=== PATIENT | male | born 1955 | race Caucasian/White ===

== ENCOUNTER 2016-10-06 23:43 | Emergency (ER) | payer MEDICAID ==
[~2016-10-06] VITALS: Ht 188 cm; Wt 81.8 kg
[2016-10-07] MEDS ORDERED: LORAZEPAM 1MG TABLET PO ONE (03:15)
[2016-10-07 03:36] LABS: BASOPHILS % 0.3 % (0.0-2.0); EOSINOPHILS % 1.1 % (0.0-5.0); HEMATOCRIT. 40.8 % (42.0-52.0); HEMOGLOBIN. 14.1 g/dL (14.0-18.0); LYMPHOCYTES % 23.6 % (20.0-50.0); MEAN CORPUSCULAR HEMOGLOBIN 30.9 pg (28.0-32.0); MEAN CORPUSCULAR VOLUME 89.5 fL (80.0-94.0); MEAN PLATELET VOLUME 8.4 fl (7.4-10.4); PLATELET 177 x1000/uL (130-400); RED BLOOD CELL COUNT 4.55 mill/uL (4.7-6.1); RED CELL DISTRIBUTION WIDTH 13.6 % (11.6-14.6)
[2016-10-07 03:47] LABS: CARBON DIOXIDE 31 mEq/L (21-32); CHLORIDE 96 mEq/L (98-107)
[2016-10-07 04:50] VITALS: BP 130/75
== END 2016-10-07 05:24 | disposition home or self-care (01) ==
LOC: ER 10-07 03:30
DX: F41.0 Panic disorder [episodic paroxysmal anxiety] (principal); L30.9 Dermatitis, unspecified; R10.9 Unspecified abdominal pain; R11.10 Vomiting, unspecified
CPT/HCPCS: 36415; 80048; 85025; 99284; Z7610

== ENCOUNTER 2016-10-07 18:40 | Emergency (ER) | payer MEDICAID ==
[~2016-10-07] VITALS: Ht 188 cm; Wt 82.0 kg
[2016-10-07 19:02] VITALS: BP 146/85
== END 2016-10-07 21:00 | disposition left against medical advice (07) ==
LOC: ER 18:40
DX: Z53.21 Procedure and treatment not carried out due to patient leaving prior to being seen by health care provider (principal)

== ENCOUNTER 2016-11-08 14:26 | Emergency (ER) | payer MEDICAID ==
[~2016-11-08] VITALS: Ht 175.3 cm; Wt 72.0 kg
[2016-11-08] MEDS ORDERED: LORAZEPAM 0.5MG TABLET PO ONE (15:30)
[2016-11-08 16:18] LABS: BASOPHILS % 0.1 % (0.0-2.0); EOSINOPHILS % 0.2 % (0.0-5.0); HEMATOCRIT. 42.1 % (42.0-52.0); HEMOGLOBIN. 14.3 g/dL (14.0-18.0); LYMPHOCYTES % 10.5 % (20.0-50.0); MEAN CORPUSCULAR HEMOGLOBIN 30.6 pg (28.0-32.0); MEAN CORPUSCULAR VOLUME 90.1 fL (80.0-94.0); MEAN PLATELET VOLUME 9.4 fl (7.4-10.4); MONOCYTES % 8.4 % (2.0-8.0); NEUTROPHILS % 80.8 % (40.0-76.0); PLATELET 163 x1000/uL (130-400); RED BLOOD CELL COUNT 4.68 mill/uL (4.7-6.1); RED CELL DISTRIBUTION WIDTH 13.8 % (11.6-14.6)
[2016-11-08 16:25] LABS: CHLORIDE 105 mEq/L (98-107)
[2016-11-08 16:31] LABS: CARBON DIOXIDE 28 mEq/L (21-32)
[2016-11-08 17:10] VITALS: BP 120/70
== END 2016-11-08 17:27 | disposition home or self-care (01) ==
LOC: ER 14:32
DX: F41.9 Anxiety disorder, unspecified (principal); R07.89 Other chest pain; K59.00 Constipation, unspecified
CPT/HCPCS: 36415; 74010; 80053; 85025; 93005; 99285

== ENCOUNTER 2016-11-09 03:07 | Emergency (ER) | payer MEDICAID ==
[~2016-11-09] VITALS: Ht 188 cm; Wt 77.0 kg
[2016-11-09] MEDS ORDERED: SODIUM CHLORIDE 0.9% 1,000 ML IV ONE (10:20)
[2016-11-09] MEDS ORDERED: LORAZEPAM 2MG/ML CPJ IV ONE (10:30)
[2016-11-09 11:22] LABS: BASOPHILS % 0.2 % (0.0-2.0); HEMOGLOBIN. 14.7 g/dL (14.0-18.0); MEAN CORPUSCULAR HEMOGLOBIN 30.6 pg (28.0-32.0); MEAN CORPUSCULAR VOLUME 89.7 fL (80.0-94.0); MEAN PLATELET VOLUME 9.5 fl (7.4-10.4); MONOCYTES % 8.6 % (2.0-8.0); NEUTROPHILS % 80.2 % (40.0-76.0); PLATELET 165 x1000/uL (130-400); RED BLOOD CELL COUNT 4.79 mill/uL (4.7-6.1); RED CELL DISTRIBUTION WIDTH 13.8 % (11.6-14.6)
[2016-11-09 11:28] LABS: BG CARBOXYHEMOGLOBIN 0.5 % (0.5-1.5); BG DEOXYHEMOGLOBIN 2.4 % (0.0-5.0); BG FRACTION INSPIRED OXYGEN 21; BG HCO3 ACT 20.8 mmol/L (22.0-26.0); BG METHEMOGLOBIN 0.4 % (0.0-1.5); BG OXYGEN SATURATION 97.6 % (92.0-98.5); BG OXYHEMOGLOBIN 96.7 % (94.0-97.0); BG PCO2 30.2 mmHg (35.0-45.0); BG PH 7.455 (7.350-7.450); BG SAMPLE SITE RIGHT RADIAL; BG TOTAL HEMOGLOBIN 14.3 g/dL (12.0-18.0); BG VENT MODE ROOM AIR
[2016-11-09 11:30] LABS: INR 1.1; PROTHROMBIN TIME 11.8 sec (9.4-11.6)
[2016-11-09 11:35] LABS: CARBON DIOXIDE 27 mEq/L (21-32); CHLORIDE 105 mEq/L (98-107); ETHANOL BLOOD < 10 mg/dL
[2016-11-09 11:40] LABS: TROPONIN I < 0.02 ng/mL (0.00-0.04)
[2016-11-09 12:02] VITALS: BP 138/72
[2016-11-09 12:27] LABS: *AMPHETAMINES SCREEN URINE NEGATIVE (NEGATIVE); *BARBITURATES SCREEN URINE NEGATIVE (NEGATIVE); *BENZODIAZEPINES SCREEN URINE NEGATIVE (NEGATIVE); *COCAINE SCREEN URINE NEGATIVE (NEGATIVE); CANNABINOID URINE SCREEN NEGATIVE (NEGATIVE); METHADONE URINE SCREEN NEGATIVE (NEGATIVE); OPIATES URINE SCREEN NEGATIVE (NEGATIVE); PHENCYCLIDINE URINE SCREEN NEGATIVE (NEGATIVE)
== END 2016-11-09 12:58 | disposition home or self-care (01) ==
LOC: ER 03:23
DX: F41.8 Other specified anxiety disorders (principal); E87.3 Alkalosis; F31.9 Bipolar disorder, unspecified; R03.0 Elevated blood-pressure reading, without diagnosis of hypertension
CPT/HCPCS: 36415; 36600; 71010; 80053; 80305; 82375; 82805; 83880; 84443; 84484; 85025; 85610; 93005; 96361; 96374; 99285; G0482; J2060; J7030; Z7610

== ENCOUNTER 2017-01-08 21:26 | Emergency (ER) | payer MEDICAID ==
[~2017-01-08] VITALS: Ht 188 cm; Wt 80.0 kg
[2017-01-09 03:40] LABS: CLARITY URINE CLEAR (CLEAR); COLOR URINE YELLOW (YELLOW); GLUCOSE URINE NEGATIVE (NEGATIVE); KETONES URINE NEGATIVE (NEGATIVE); LEUKOCYTE ESTERASE URINE NEGATIVE (NEGATIVE); NITRITE URINE NEGATIVE (NEGATIVE); OCCULT BLOOD URINE NEGATIVE (NEGATIVE); PROTEIN URINE NEGATIVE (NEGATIVE); SPECIFIC GRAVITY URINE 1.009 (1.005-1.030); UROBILINOGEN URINE 0.2 E.U./dL (0.2-1.0)
[2017-01-09 03:42] LABS: BASOPHILS % 0.3 % (0.0-2.0); EOSINOPHILS % 1.5 % (0.0-5.0); HEMATOCRIT. 41.9 % (42.0-52.0); HEMOGLOBIN. 14.2 g/dL (14.0-18.0); LYMPHOCYTES % 29.5 % (20.0-50.0); MEAN CORPUSCULAR HEMOGLOBIN 30.5 pg (28.0-32.0); MEAN PLATELET VOLUME 9.1 fl (7.4-10.4); MONOCYTES % 9.4 % (2.0-8.0); NEUTROPHILS % 59.3 % (40.0-76.0); PLATELET 144 x1000/uL (130-400); RED BLOOD CELL COUNT 4.66 mill/uL (4.7-6.1); RED CELL DISTRIBUTION WIDTH 13.4 % (11.6-14.6)
[2017-01-09 03:53] LABS: CARBON DIOXIDE 27 mEq/L (21-32); CHLORIDE 103 mEq/L (98-107); ETHANOL BLOOD < 10 mg/dL
[2017-01-09 03:55] LABS: *AMPHETAMINES SCREEN URINE NEGATIVE (NEGATIVE); *BARBITURATES SCREEN URINE NEGATIVE (NEGATIVE); *BENZODIAZEPINES SCREEN URINE NEGATIVE (NEGATIVE); *COCAINE SCREEN URINE NEGATIVE (NEGATIVE); CANNABINOID URINE SCREEN NEGATIVE (NEGATIVE); METHADONE URINE SCREEN NEGATIVE (NEGATIVE); OPIATES URINE SCREEN NEGATIVE (NEGATIVE); PHENCYCLIDINE URINE SCREEN NEGATIVE (NEGATIVE)
[2017-01-09 06:22] VITALS: BP 116/72
== END 2017-01-09 06:05 | disposition home or self-care (01) ==
LOC: ER 21:39
DX: R07.9 Chest pain, unspecified (principal)
CPT/HCPCS: 36415; 80053; 80305; 81003; 85025; 93005; 99285; G0482